=== PATIENT | female | born 1960 | race Caucasian/White ===

== ENCOUNTER → 2016-11-15 | Outpatient (CLI) | payer OTHER ==
[~2016-11-15] MED LIST: ADVIL200 M2 PO; AMOXICILLIN500 M1 PO; FLEXERIL10 MG PO; GLUCOSAMIN-CHO1 EACH PO; LOTREL 10/20 MG1 CAP PO; NORCO 10-325 TA1 TAB PO; VITAMIN D-32000 UNI1 PO
--- NOTE | ~2016-11-15 | MY11 ---
[facility] A Service of [facility] RADIOLOGY TEXT RESULTS PATIENT: ANH ALARCON LOCATION: [facility] : 60 UNIT #: [id number] AGE: [address]: Leah Prado MD SEX: F ORDER DR: [id number] [address] [id number] O MR#: [id number] Acc #: [id number] NAME: ANH ALARCON : 1960 SEX: F STUDY DATE/TIME: 11/15/2016 9:54 UNIT: [facility] ROOM: STUDY DESCRIPTION: MY Mammogram Screening Dig Jitendra Attending Physician: Leah Prado M.D. Referring Physician: Leah Prado M.D. Ordering Physician: Leah Prado M.D. Primary Care Physician: Leah Praod M.D. MEDICAL IMAGING REPORT This report is preliminary unless electronic signature is present EXAM Bilateral Digital Screening Mammogram with CAD INDICATION Breast cancer screening. 56-year-old asymptomatic female. No personal or family history of breast cancer. Prior benign incisional biopsy of the right breast. COMPARISON November 13, 2015, November 11, 2014, November 01, 2013, May 01, 2012, June 14, 2010, April 30, 2009, April 03, 2007. FINDINGS There are scattered fibroglandular tissues. No suspicious findings are present. IMPRESSION No mammographic evidence of malignancy. Annual screening mammography and clinical breast exam are recommended. A result letter will be sent to the patient. Patients over the age of 40 are entered into a reminder system with target due date for the next mammogram. BIRADS: 1 Negative Dictated by... Nilo Kelly M.D. THIS IS AN ELECTRONICALLY VERIFIED REPORT [facility] A Service [facility] RADIOLOGY TEXT RESULTS PATIENT: ANH ALARCON LOCATION: [facility] : 60 UNIT #: [id number] AGE: [address]: Leah Prado MD SEX: F ORDER DR: Nilo Kelly M.D. at 11/15/2016 5:31 PM FRANCESCO/ana TD: 11/15/2016 12:05 JOB #: [id number] MEDICAL IMAGING REPORT Page 1 of 1 COPY
== END | disposition home or self-care (01) ==
LOC: CWCC 09:30
DX: Z12.31 Encounter for screening mammogram for malignant neoplasm of breast (principal); Z98.890 Other specified postprocedural states
CPT/HCPCS: G0202